=== PATIENT | female | born 1945 | race Caucasian/White ===

== ENCOUNTER 2018-05-17 13:17 | Emergency (ER) | payer MEDICARE ==
[2018-05-17 13:25] VITALS: RESP 16
--- NOTE | 2018-05-17 13:45 | ED PDOC ---
Hyperglycemia/Hypoglycemia Time Seen by Provider: 05/17/18 13:31 Chief Complaint (Nursing): High Blood Sugar Chief Complaint (Provider): High blood sugar History Per: Patient History/Exam Limitations: no limitations Onset/Duration Of Symptoms: Days (yesterday) : The patient does not have any of the infectious symptoms listed except for those marked. Additional Complaint(s): Pt. with high blood sugar yesterday in 300. Noted weakness all over, mild dizziness, like light-headed, and nausea, but no vomit. No chest pain, dyspnea , vision changes, numbness, tingles, abd pain, leg pain. No speech changes. Urinating well. seen yesterday for high sugar and left AMA. Past Medical History Reviewed: Nursing Documentation, Vital Signs Vital Signs: Last Vital Signs Temp 97.8 F 05/17/18 13:22 Pulse 89 05/17/18 13:22 Resp 16 05/17/18 13:22 BP 178/83 H 05/17/18 13:22 Pulse Ox 100 05/17/18 13:22 - Medical History PMH: Diabetes (type II), HTN, Hypercholesterolemia Denies: HIV, Chronic Kidney Disease - Surgical History Surgical History: No Surg Hx - Family History Family History: States: Unknown Family Hx - Living Arrangements Living Arrangements: With Family - Social History Alcohol: None Drugs: Denies - Home Medications Home Medications: Ambulatory Orders Medication Instructions Recorded Atorvastatin [Lipitor] 10 mg PO HS 09/17/16 Ergocalciferol (Vitamin D2) 50,000 unit PO QWK 09/17/16 [Vitamin D2] Levocetirizine Dihydrochloride 5 mg PO DAILY 09/17/16 [Xyzal] Metformin HCl [Glucophage] 1,000 mg PO BID 09/17/16 Meclizine [Meclizine*] 25 mg PO Q6 PRN #30 tab 12/06/16 Ondansetron [Zofran] 4 mg PO Q8H PRN #30 tab 12/06/16 Zolpidem [Ambien] 10 mg PO HS PRN 12/06/16 - Allergies Allergies/Adverse Reactions: Allergies Allergy/AdvReac Type Severity Reaction Status Date / Time No Known Allergies Allergy Verified 09/17/16 01:13 Review of Systems ROS Statement: Except As Marked, All Systems Reviewed And Found Negative Constitutional: Positive for: Weakness Gastrointestinal: Positive for: Nausea Neurological: Positive for: Weakness, Dizziness Physical Exam - Reviewed Nursing Documentation Reviewed: Yes Vital Signs Reviewed: Yes - Physical Exam Appears: Positive for: Non-toxic, No Acute Distress Head Exam: Positive for: ATRAUMATIC, NORMAL INSPECTION, NORMOCEPHALIC Skin: Positive for: Normal Color, Warm, DRY Eye Exam: Positive for: EOMI, Normal appearance, PERRL ENT: Positive for: Normal ENT Inspection Neck: Positive for: Normal, Painless ROM Cardiovascular/Chest: Positive for: Regular Rate, Rhythm Respiratory: Positive for: CNT, Normal Breath Sounds Gastrointestinal/Abdominal: Positive for: Normal Exam, Soft. Negative for: Tenderness Back: Positive for: Normal Inspection. Negative for: L CVA Tenderness, R CVA Tenderness Extremity: Positive for: Normal ROM. Negative for: Tenderness, Pedal Edema Neurologic/Psych: Positive for: Alert, concrete laborer II-XII, Oriented. Negative for: Motor/Sensory Deficits, Aphasia, Facial Droop - Laboratory Results Result Diagrams: 05/17/18 14:05 05/17/18 14:05 Interpretation Of Abn Labs: 22 bun, 1.3 cr - ECG ECG: Positive for: Interpreted By Me, Viewed By Me ECG Rhythm: Positive for: Normal QRS, Normal ST Segment, Sinus Rhythm O2 Sat by Pulse Oximetry: 100 Pulse Ox Interpretation: Normal - Progress ED Course And Treament: 1541: Stable. AAOx3. Pain free. Tolerated PO. Feels no dizziness. No symptoms currently. FU with pcp. Disposition - Clinical Impression Clinical Impression: Weakness, Dehydration - Patient ED Disposition Is Patient to be Admitted: No Counseled Patient/Family Regarding: Studies Performed, Diagnosis - Disposition Referrals: [facility] [Outside] - 05/19/18 Disposition: Routine/Home Disposition Time: 15:42 Condition: STABLE Additional Instructions: Return if not better in 3 days. Instructions: Weakness (ED), Dehydration, Adult (DC) Print Language: [place]
[2018-05-17] MEDS ORDERED: Sodium Chloride 0.9% 1,000 ML IV STA (13:46)
[2018-05-17 14:15] LABS: BASO % 0.6 % (0.0-2.0); EOS # 0.4 K/uL (0.0-0.7); EOS % 5.4 % (0.0-4.0); HEMOGLOBIN 11.5 g/dL (12.0-16.0); LYMPH # 1.7 K/uL (1.0-4.3); MEAN CELL VOLUME 90.6 fl (81.0-99.0); MEAN CORPUSCULAR HGB CONC 34.2 g/dL (33.0-37.0); MEAN PLATELET VOLUME 7.3 fl (7.2-11.7); MONO # 0.4 K/uL (0.0-0.8); MONO % 5.6 % (0.0-10.0); NEUT # 5.2 K/uL (1.8-7.0); NEUT % 66.4 % (50.0-75.0); NRBC % 0.1 % (0.0-0.0); RBC 3.7 Mil/uL (3.80-5.20); RED CELL DISTRIBUTION WIDTH 13.1 % (11.5-14.5); WHITE BLOOD COUNT 7.9 K/uL (4.8-10.8)
[2018-05-17 14:20] LABS: INR 0.9; PROTHROMBIN TIME 10.3 Seconds (9.8-13.1)
[2018-05-17 14:22] LABS: PARTIAL THROMBOPLASTIN TIME 30.3 Seconds (25.6-37.1)
[2018-05-17 14:25] LABS: ALB/GLOB RATIO 1.3 (1.0-2.1); ALBUMIN 4.2 g/dL (3.5-5.0); ALT/SGPT 36 U/L (9-52); AST/SGOT 30 U/L (14-36); BLOOD UREA NITROGEN 22 mg/dl (7-17); CALCIUM 9.4 mg/dL (8.4-10.2); GFR AFRICAN-AMERICAN 49; GFR NON-AFRICAN AMERICAN 40
[2018-05-17 16:24] VITALS: BP 145/73; PULSE 82; TEMP 98; O2SAT 99
--- NOTE | 2018-05-17 16:29 | CARD ---
APPROVED REPORT Date of service: 05/17/2018 <Conclusion> Normal sinus rhythm Normal ECG
== END 2018-05-17 16:00 | disposition home or self-care (01) ==
LOC: H.ER 13:17
DX: E86.0 Dehydration (principal); R53.1 Weakness; E11.9 Type 2 diabetes mellitus without complications; E78.00 Pure hypercholesterolemia, unspecified; I10 Essential (primary) hypertension
CPT/HCPCS: 80053; 82948; 84484; 85025; 85610; 85730; 93005; 96365; 99284; J2765; J7030

== ENCOUNTER 2018-10-12 10:28 | Emergency (ER) | payer MEDICARE ==
[2018-10-12 10:35] VITALS: PULSE 89; RESP 16; TEMP 97.8; O2SAT 97; BMI 24.3
[2018-10-12 10:36] VITALS: BP 170/76
[2018-10-12] MEDS ORDERED: Oxycodone/Acetaminophen 5/325 mg Tab PO STA (10:59)
[2018-10-12] MEDS ORDERED: Oxycodone/Acetaminophen 5/325 mg Tab ONE (11:16)
--- NOTE | 2018-10-12 11:21 | ED PDOC ---
HPI: Skin/Bite Injury Time Seen by Provider: 10/12/18 10:47 Chief Complaint (Nursing): Back Pain Chief Complaint (Provider): Rash History Per: Patient History/Exam Limitations: no limitations Onset/Duration Of Symptoms: Days (x6) Location Of Injury: Left: Chest Additional Complaint(s): 73 y/o female with history of diabetes presents to ER for evaluation of rash to left side of chest that she began noticing x6 days ago. Patient reports rash began with burning sensation and pain on Saturday and Saturday, and reports 1 episode of vomiting that is now resolved. She states pain radiates from chest down her back in a shooting pattern and reports right sided hip pain for months. Patient denies fevers or shortness of breath. PMD: Eb Garcia Past Medical History Reviewed: Historical Data, Nursing Documentation, Vital Signs Vital Signs: Last Vital Signs Temp 97.8 F 10/12/18 10:34 Pulse 89 10/12/18 10:34 Resp 16 10/12/18 10:34 BP 170/76 H 10/12/18 10:34 Pulse Ox 97 10/12/18 10:34 - Medical History PMH: Diabetes (type II), HTN, Hypercholesterolemia, Pneumonia Denies: HIV, Chronic Kidney Disease - Surgical History Surgical History: No Surg Hx - Family History Family History: States: Unknown Family Hx - Social History Current smoker - smoking cessation education provided: No Alcohol: None Drugs: Denies - Home Medications Home Medications: Ambulatory Orders Medication Instructions Recorded Atorvastatin [Lipitor] 10 mg PO HS 09/17/16 Ergocalciferol (Vitamin D2) 50,000 unit PO QWK 09/17/16 [Vitamin D2] Levocetirizine Dihydrochloride 5 mg PO DAILY 09/17/16 [Xyzal] Metformin HCl [Glucophage] 1,000 mg PO BID 09/17/16 Meclizine [Meclizine*] 25 mg PO Q6 PRN #30 tab 12/06/16 Ondansetron [Zofran] 4 mg PO Q8H PRN #30 tab 12/06/16 Zolpidem [Ambien] 10 mg PO HS PRN 12/06/16 Hydrocodone/Acetaminophen [Vicodin 1 each PO Q8 #15 tablet 10/12/18 Es 7.5-300 mg Tablet] Ibuprofen [Motrin Tab] 600 mg PO Q6 #30 tab 10/12/18 predniSONE [predniSONE Tab] 60 mg PO DAILY #9 tab 10/12/18 valACYclovir [Valtrex] 1,000 mg PO TID 7 Days #21 tab 10/12/18 - Allergies Allergies/Adverse Reactions: Allergies Allergy/AdvReac Type Severity Reaction Status Date / Time No Known Allergies Allergy Verified 09/17/16 01:13 Review of Systems ROS Statement: Except As Marked, All Systems Reviewed And Found Negative Constitutional: Negative for: Fever Respiratory: Negative for: Shortness of Breath Gastrointestinal: Negative for: Vomiting Musculoskeletal: Positive for: Back Pain, Other (Right sided hip pain) Skin: Positive for: Rash (to left side of chest) Physical Exam - Reviewed Nursing Documentation Reviewed: Yes Vital Signs Reviewed: Yes - Physical Exam Appears: Positive for: Well, No Acute Distress Head Exam: Positive for: ATRAUMATIC, NORMOCEPHALIC Skin: Positive for: Rash (vesicular in dermatomal distribution on L chest) Eye Exam: Positive for: Normal appearance, EOMI, PERRL Neck: Positive for: Normal, Painless ROM, Supple Cardiovascular/Chest: Positive for: Regular Rate, Rhythm. Negative for: Murmur Respiratory: Positive for: Normal Breath Sounds. Negative for: Respiratory Distress Gastrointestinal/Abdominal: Positive for: Normal Exam, Soft. Negative for: Tenderness Back: Positive for: Normal Inspection. Negative for: L CVA Tenderness, R CVA Tenderness Extremity: Positive for: Normal ROM. Negative for: Pedal Edema, Deformity Neurologic/Psych: Positive for: Alert, claim administrator II-XII, Oriented (x3). Negative for: Motor/Sensory Deficits - ECG O2 Sat by Pulse Oximetry: 97 (RA) Pulse Ox Interpretation: Normal Medical Decision Making Medical Decision Making: Time: 1057 A/P: Diabetic patient presents with rash to chest, likely herpes zoster --Will treat symptomatically and refer patient to PMD --Patient is very well appearing, chewing gum in room, comfortable, no acute distress --Stable for outpatient treatment and followup --Discussed narcotic safety with patient and warned against abuse Scribe Attestation: Documented by Irma Alvarez, acting as a scribe for Carmelo Marie MD. Provider Scribe Attestation: All medical record entries made by the Scribe were at my direction and personally dictated by me. I have reviewed the chart and agree that the record accurately reflects my personal performance of the history, physical exam, medical decision making, and the department course for this patient. I have also personally directed, reviewed, and agree with the discharge instructions and disposition. Disposition - Clinical Impression Clinical Impression: Herpes zoster - Patient ED Disposition Is Patient to be Admitted: No - Disposition Referrals: Eb Garcia [Primary Care Provider] - Disposition: Routine/Home Disposition Time: 11:40 Condition: STABLE Prescriptions: Hydrocodone/Acetaminophen [Vicodin Es 7.5-300 mg Tablet] 1 each PO Q8 #15 tablet Ibuprofen [Motrin Tab] 600 mg PO Q6 #30 tab predniSONE [predniSONE Tab] 60 mg PO DAILY #9 tab valACYclovir [Valtrex] 1,000 mg PO TID 7 Days #21 tab Instructions: Shingles, Taking Narcotics Safely, Opioids for Short-Term Treatment of Pain Forms: [facility] ([place]ian)
--- NOTE | 2018-10-12 20:43 | CARD ---
APPROVED REPORT Date of service: 10/12/2018 EKG Measurement Heart [id number] <Conclusion> Normal sinus rhythm Minimal voltage criteria for LVH, may be normal variant Borderline ECG
== END 2018-10-12 12:01 | disposition home or self-care (01) ==
LOC: H.ER 10:28 → SUPCPDRO 10:28 → H.ER 12:01
DX: B02.9 Zoster without complications (principal); E11.9 Type 2 diabetes mellitus without complications; E78.00 Pure hypercholesterolemia, unspecified; I10 Essential (primary) hypertension

== ENCOUNTER 2018-10-14 11:53 | Emergency (ER) | payer MEDICARE ==
[2018-10-14 11:53] VITALS: BMI 24.3
[2018-10-14 12:18] VITALS: PULSE 104
[2018-10-14 12:26] VITALS: TEMP 97.6
[2018-10-14] MEDS ORDERED: Sodium Chloride 0.9% 1,000 ML IV STA (13:04)
--- NOTE | 2018-10-14 13:24 | ED PDOC ---
HPI: Abdomen Time Seen by Provider: 10/14/18 12:45 Chief Complaint (Nursing): Abdominal Pain Chief Complaint (Provider): Abdominal Pain History Per: Patient History/Exam Limitations: no limitations Onset/Duration Of Symptoms: Days (x2) Current Symptoms Are (Timing): Still Present Additional Complaint(s): 73 year old female with pmHx of DM, HTN, and HCL, arrives to ED with for an evaluation of abdominal pain associated with nausea, vomiting, and dizziness. Patient was treated in ED on 10/12/18 for shingles on left flank then prescribed Valtrex, prednisone, and pain medication. She states that she took Valtrex and prednisone as prescribed yesterday morning but only took another dose of Valtrex earlier today when abdominal pain began. At present, she reports shingles pain is tolerable. PCP: Dr. Eb Garcia Past Medical History Reviewed: Historical Data, Nursing Documentation, Vital Signs Vital Signs: Last Vital Signs Temp 97.6 F 10/14/18 12:15 Pulse 104 H 10/14/18 12:15 Resp 18 10/14/18 12:15 BP 173/79 H 10/14/18 12:15 Pulse Ox 100 10/14/18 12:15 - Medical History PMH: Diabetes (type II), HTN, Hypercholesterolemia, Pneumonia Denies: HIV, Chronic Kidney Disease - Family History Family History: States: Unknown Family Hx - Home Medications Home Medications: Ambulatory Orders Medication Instructions Recorded Atorvastatin [Lipitor] 10 mg PO HS 09/17/16 Ergocalciferol (Vitamin D2) 50,000 unit PO QWK 09/17/16 [Vitamin D2] Levocetirizine Dihydrochloride 5 mg PO DAILY 09/17/16 [Xyzal] Metformin HCl [Glucophage] 1,000 mg PO BID 09/17/16 Meclizine [Meclizine*] 25 mg PO Q6 PRN #30 tab 12/06/16 Ondansetron [Zofran] 4 mg PO Q8H PRN #30 tab 12/06/16 Zolpidem [Ambien] 10 mg PO HS PRN 12/06/16 Hydrocodone/Acetaminophen [Vicodin 1 each PO Q8 #15 tablet 10/12/18 Es 7.5-300 mg Tablet] Ibuprofen [Motrin Tab] 600 mg PO Q6 #30 tab 10/12/18 predniSONE [predniSONE Tab] 60 mg PO DAILY #9 tab 10/12/18 valACYclovir [Valtrex] 1,000 mg PO TID 7 Days #21 tab 10/12/18 Famotidine [Pepcid] 20 mg PO BID #28 tab 10/14/18 - Allergies Allergies/Adverse Reactions: Allergies Allergy/AdvReac Type Severity Reaction Status Date / Time No Known Allergies Allergy Verified 09/17/16 01:13 Review of Systems ROS Statement: Except As Marked, All Systems Reviewed And Found Negative Gastrointestinal: Positive for: Nausea, Vomiting, Abdominal Pain Neurological: Positive for: Dizziness Physical Exam - Reviewed Nursing Documentation Reviewed: Yes Vital Signs Reviewed: Yes - Physical Exam Appears: Positive for: Non-toxic, No Acute Distress Head Exam: Positive for: ATRAUMATIC, NORMAL INSPECTION, NORMOCEPHALIC Skin: Positive for: Normal Color Eye Exam: Positive for: Normal appearance ENT: Positive for: Normal ENT Inspection Neck: Positive for: Normal Cardiovascular/Chest: Positive for: Regular Rate, Rhythm, Chest Non Tender Respiratory: Positive for: Normal Breath Sounds. Negative for: Respiratory Distress Gastrointestinal/Abdominal: Positive for: Soft, Tenderness (epigastric) Back: Positive for: Other (shingles to left flank) Extremity: Positive for: Normal ROM (upper/lower) Neurologic/Psych: Positive for: Alert, Oriented. Negative for: Motor/Sensory Deficits - Laboratory Results Result Diagrams: 10/14/18 13:20 10/14/18 14:41 - ECG O2 Sat by Pulse Oximetry: 100 (RA) Pulse Ox Interpretation: Normal - Progress Condition: Re-examined, Improved Medical Decision Making Medical Decision Making: Time: 1300 Initial Plan: * Labs * IV fluids * Pepcid 20mg IVP * Zofran 4mg IV * Accucheck Time: 1318 --Discussed with patient the option to discontinue Valtrex and prednisone if shingles pain is tolerable as patient reports shingles started 1 week ago. Medication and labs for abdominal pain offered. Patient agrees to plan. Scribe Attestation: Documented by Erma Narayan, acting as a scribe for Cristine Jimenez MD. Provider Scribe Attestation: All medical record entries made by the Scribe were at my direction and personally dictated by me. I have reviewed the chart and agree that the record accurately reflects my personal performance of the history, physical exam, medical decision making, and the department course for this patient. I have also personally directed, reviewed, and agree with the discharge instructions and disposition. repeat Glu, Bun/creatinine shows improvement after hydration. Patient is feeling okay. Will discharge. Disposition - Clinical Impression Clinical Impression: Abdominal discomfort - Patient ED Disposition Is Patient to be Admitted: No Doctor Will See Patient In The: Office Counseled Patient/Family Regarding: Diagnosis, Need For Followup - Disposition Referrals: Eb Garcia [Staff Provider] - Disposition: Routine/Home Disposition Time: 15:26 Condition: IMPROVED Prescriptions: Famotidine [Pepcid] 20 mg PO BID #28 tab Instructions: Gastritis Forms: [facility] ([place]) Print Language: [place]UNG[place]IAN - POA Present On Arrival: None
[2018-10-14 13:46] LABS: BASO % 0.1 % (0.0-2.0); LYMPH # 0.4 K/uL (1.0-4.3); MEAN CELL VOLUME 94.1 fl (81.0-99.0); MEAN CORPUSCULAR HEMOGLOBIN 30.4 pg (27.0-31.0); MEAN CORPUSCULAR HGB CONC 32.3 g/dL (33.0-37.0); MEAN PLATELET VOLUME 7.8 fl (7.2-11.7); MONO # 0.2 K/uL (0.0-0.8); MONO % 1.6 % (0.0-10.0); NEUT # 14.1 K/uL (1.8-7.0); NEUT % 95.3 % (50.0-75.0); PLATELET COUNT 288 K/uL (130-400); RBC 3.95 Mil/uL (3.80-5.20); RED CELL DISTRIBUTION WIDTH 13.1 % (11.5-14.5); WHITE BLOOD COUNT 14.7 K/uL (4.8-10.8)
[2018-10-14 14:01] LABS: ALB/GLOB RATIO 1.3 (1.0-2.1); ALBUMIN 4.5 g/dL (3.5-5.0); CALCIUM 9.9 mg/dL (8.4-10.2)
[2018-10-14 14:59] LABS: CALCIUM 9.2 mg/dL (8.4-10.2)
[2018-10-14 15:09] LABS: LYMPHOCYTE 5 % (20-50); MONOCYTE 2 % (0-10); NEUTROPHIL 93 % (42-75); PLATELET ESTIMATE NORMAL (NORMAL); TOTAL CELLS COUNTED 100
[2018-10-14 15:10] LABS: HYPERSEGMENTATION PRESENT
[2018-10-14 15:34] VITALS: BP 147/80; RESP 19; O2SAT 98
== END 2018-10-14 15:34 | disposition home or self-care (01) ==
LOC: H.ER 11:53
DX: K29.70 Gastritis, unspecified, without bleeding (principal); E11.9 Type 2 diabetes mellitus without complications; E78.00 Pure hypercholesterolemia, unspecified; I10 Essential (primary) hypertension
CPT/HCPCS: 80048; 80053; 82948; 85025; 96374; 96375; 99284; J2405; J7030